=== PATIENT | male | born 1970 | race African-American/Black ===

== ENCOUNTER 2018-07-26 12:15 | Emergency (ER) | payer BC, OTHER ==
[2018-07-26] MEDS ORDERED: Ketorolac Tromethamine 30 MG/ML VIAL ONE (13:18)
[2018-07-26] MEDS ORDERED: Ibuprofen 800 MG TAB ONE (13:27)
== END 2018-07-26 13:39 | disposition home or self-care (01) ==
LOC: ERS 12:15
DX: S76.912A Strain of unspecified muscles, fascia and tendons at thigh level, left thigh, initial encounter (principal); X50.9XXA Other and unspecified overexertion or strenuous movements or postures, initial encounter
CPT/HCPCS: 96372; J1885

== ENCOUNTER 2019-03-01 10:49 | Emergency (ER) | payer OTHER ==
[2019-03-01 11:42] LABS: #Basophils 0.1 thou/uL (0.0-0.2); #Eosinphils 0.1 thou/uL (0.0-0.7); #Lymphocytes 1.7 thou/uL (1.20-3.40); #Monocytes 0.8 thou/uL (0.11-0.59); %Basophils 1.1 % (0.0-1.0); %Lymphocytes 25.3 % (21.0-51.0); %Monocytes 12.2 % (0.0-10.0); %Neutrophils 59.4 % (42.0-75.0); Hemoglobin 15.4 g/dL (14.0-18.0); Mean Corpuscular HGB CONC 33.4 g/dL (32.0-36.0); Mean Corpuscular Hemoglobin 29.3 pg (27.0-31.0); Mean Corpuscular Volume 87.7 fL (78.0-98.0); Mean Platelet Volume 8.2 fL (7.4-10.4); Platelet Count 220 thou/uL (130-400); RBC Distribution Width 12.1 % (11.5-14.5); Red Blood Cell (RBC) Count 5.25 mill/uL (4.70-6.10); White Blood Cell (WBC) Count 6.7 thou/uL (4.8-10.8)
[2019-03-01 12:16] LABS: ALT (SGPT) 16 U/L (8-55); AST (SGOT) 16 U/L (5-34); Albumin 4.2 g/dL (3.5-5.0); Alkaline Phosphatase 90 U/L (40-110); Anion Gap 12 mmol/L (10-20); BUN (Urea Nitrogen) 8 mg/dL (8.9-20.6); Bilirubin, Total 0.5 mg/dL (0.2-1.2); Calc. Creatinine Clearance 0 mL/min (70-130); Calcium 9.7 mg/dL (7.8-10.44); Carbon Dioxide 32 mmol/L (22-29); Chloride 100 mmol/L (98-107); Estimated GFR-MDRD Greater than 90; Globulin 3.6 g/dL (2.4-3.5); Glucose 140 mg/dL (70-105); Potassium 4.2 mmol/L (3.5-5.1); Protein, Total 7.8 g/dL (6.0-8.3); Sodium 140 mmol/L (136-145)
--- NOTE | 2019-03-01 13:33 | RAD ---
PORTABLE CHEST 1 VIEW: Date: 03/01/2019 Time: 1220 hours HISTORY: Hypertension. FINDINGS: Comparison made with exam of 04/02/07. The heart size is normal. The lungs are well expanded without lobar consolidation, pneumothoraces, or pleural effusions. IMPRESSION: No radiographic evidence of acute cardiopulmonary process. POS: [facility]
== END 2019-03-01 13:16 | disposition home or self-care (01) ==
LOC: ERS 10:49
DX: E11.40 Type 2 diabetes mellitus with diabetic neuropathy, unspecified (principal); R42 Dizziness and giddiness; I10 Essential (primary) hypertension; Z79.84 Long term (current) use of oral hypoglycemic drugs; Z79.899 Other long term (current) drug therapy
CPT/HCPCS: 36416; 71045; 80053; 84484; 85025; 93005

== ENCOUNTER 2020-05-30 14:10 | Observation (INO) | payer OTHER ==
[2020-05-30 17:30] VITALS: BMI 36.6
[2020-05-30] MEDS ORDERED: Dextrose 5% in Water 1,000 ML IV PRN (19:11)
[2020-05-30] MEDS ORDERED: Dextrose 50% Abboject 50 ML SYRINGE SLOW IVP PRN (19:11)
[2020-05-30] MEDS ORDERED: HumaLOG 300 UNITS/3 ML VIAL SC PRN (19:11)
[2020-05-30 20:13] LABS: Magnesium 1.8 mg/dL (1.6-2.6)
[2020-05-30] MEDS: HumaLOG 300 UNITS/3 ML VIAL SC PRN (21:47)
[2020-05-31] MEDS ORDERED: Magnesium 2 GM/50 ML 2 GM in Premix Bag 1 BAG IVPB SCH (02:45)
[2020-05-31 03:08] LABS: #Basophils 0.1 thou/uL (0.0-0.2); #Eosinphils 0.3 thou/uL (0.0-0.7); #Lymphocytes 2.1 thou/uL (1.20-3.40); #Monocytes 0.8 thou/uL (0.11-0.59); #Neutrophils 3.7 thou/uL (1.40-6.50); %Basophils 1.2 % (0.0-1.0); %Eosinophils 3.7 % (0.0-10.0); %Lymphocytes 30.5 % (21.0-51.0); %Monocytes 11.5 % (0.0-10.0); %Neutrophils 53.2 % (42.0-75.0); Hemoglobin 14.9 g/dL (14.0-18.0); Mean Corpuscular HGB CONC 35.6 g/dL (32.0-36.0); Mean Corpuscular Hemoglobin 31.1 pg (27.0-31.0); Mean Corpuscular Volume 87.4 fL (78.0-98.0); Mean Platelet Volume 8.1 fL (7.4-10.4); Platelet Count 198 thou/uL (130-400); RBC Distribution Width 12.3 % (11.5-14.5); Red Blood Cell (RBC) Count 4.79 mill/uL (4.70-6.10); White Blood Cell (WBC) Count 6.9 thou/uL (4.8-10.8)
[2020-05-31 03:27] LABS: Anion Gap 12 mmol/L (10-20); BUN (Urea Nitrogen) 16 mg/dL (8.9-20.6); Calc. Creatinine Clearance 170 mL/min (70-130); Calcium 8.7 mg/dL (7.8-10.44); Carbon Dioxide 24 mmol/L (22-29); Cardiac Risk 5.4 (Less than 4.5); Chloride 108 mmol/L (98-107); Cholesterol 172 mg/dl (< 200 Desired); Glucose 205 mg/dL (70-105); HDL Cholesterol 32 mg/dL (>60 Neg Risk); LDL Cholesterol, Calculated 77 mg/dL; Potassium 4.1 mmol/L (3.5-5.1); Sodium 140 mmol/L (136-145); Triglycerides 315 mg/dL (Less than 150)
[2020-05-31] MEDS: Aspirin Chewable 81 MG TAB PO SCH (09:44)
[2020-05-31] MEDS: Nitroglycerin 0.4 MG TAB (25 Tab Bottle) SL PRN ×2 (09:44→15:24)
[2020-05-31] MEDS ORDERED: Lisinopril 10 MG TAB PO SCH (11:15)
[2020-05-31] MEDS ORDERED: Communication Order-Pharmacy FS SCH (16:00)
[2020-05-31] MEDS ORDERED: Atorvastatin Calcium 40 MG TAB PO SCH (21:00)
[2020-05-31] MEDS: Metoprolol Tartrate 25 MG TAB PO SCH (22:21)
[2020-05-31] MEDS: HumaLOG 300 UNITS/3 ML VIAL SC PRN (22:58)
[2020-06-01 02:23] LABS: SARS-CoV-2 PCR by NAA Not Detected (NotDetected)
[2020-06-01 05:16] LABS: #Basophils 0.1 thou/uL (0.0-0.2); #Eosinphils 0.2 thou/uL (0.0-0.7); #Lymphocytes 1.9 thou/uL (1.20-3.40); #Monocytes 0.7 thou/uL (0.11-0.59); #Neutrophils 3.2 thou/uL (1.40-6.50); %Basophils 1.3 % (0.0-1.0); %Eosinophils 3.1 % (0.0-10.0); %Lymphocytes 30.9 % (21.0-51.0); %Monocytes 11.7 % (0.0-10.0); %Neutrophils 53.1 % (42.0-75.0); Hemoglobin 15.7 g/dL (14.0-18.0); Mean Corpuscular HGB CONC 33.3 g/dL (32.0-36.0); Mean Corpuscular Volume 87.2 fL (78.0-98.0); Platelet Count 201 thou/uL (130-400); RBC Distribution Width 12.2 % (11.5-14.5)
[2020-06-01] MEDS ORDERED: Sodium Chloride 0.9% 1,000 ML IV SCH ×2 (06:00→07:51)
[2020-06-01] MEDS: Aspirin Chewable 81 MG TAB PO SCH (06:03)
[2020-06-01] MEDS: Metoprolol Tartrate 25 MG TAB PO SCH (06:03)
[2020-06-01] MEDS ORDERED: Heparin 10,000 UNITS/ 10 ML VIAL ONE (06:42)
[2020-06-01] MEDS ORDERED: Lidocaine 1% (PF) 30 ML VIAL ONE (06:42)
[2020-06-01] MEDS ORDERED: Fentanyl 100 MCG/2 ML VIAL ONE (07:06)
[2020-06-01] MEDS ORDERED: Midazolam HCl 2 mg/2 ml Vial ONE (07:07)
[2020-06-01] MEDS ORDERED: Protamine Sulfate 50 MG/5 ML VIAL ONE (07:30)
[2020-06-01] MEDS ORDERED: Sodium Chloride 0.9% 200 ML IV PRN (07:50)
[2020-06-01] MEDS ORDERED: Acetaminophen/Codeine 30-300mg Tablet PO PRN ×2 (07:50)
[2020-06-01 08:24] VITALS: TEMP 97.5
[2020-06-01] MEDS: Cyclobenzaprine 10 MG TAB PO SCH ×2 (08:26→13:33)
[2020-06-01] MEDS ORDERED: Metoprolol Tartrate 25 MG TAB PO SCH (09:00)
[2020-06-01] MEDS ORDERED: Lisinopril 10 MG TAB PO SCH (09:00)
[2020-06-01] MEDS ORDERED: Naproxen 500 MG TAB PO SCH (09:00)
[2020-06-01 10:42] VITALS: BP 159/86
[2020-06-01] MEDS ORDERED: Iopamidol 370 76% 100 ML VIAL ONE (12:03)
[2020-06-01] MEDS ORDERED: Iopamidol 370 76% 50 ML VIAL FS ONE (12:03)
[2020-06-01] MEDS ORDERED: Atorvastatin Calcium 10 MG TAB PO SCH (21:00)
== END 2020-06-01 13:49 | disposition home or self-care (01) ==
LOC: 2SW 14:10
PROVIDERS: ADMIT Internal Medicine; ATTEND Internal Medicine
PROC: 4A023N7 Measurement of Cardiac Sampling and Pressure, Left Heart, Percutaneous Approach (ICD-10-PCS; principal; 2020-06-01)
PROC: B2111ZZ Fluoroscopy of Multiple Coronary Arteries using Low Osmolar Contrast (ICD-10-PCS; 2020-06-01)
DX: I20.8 Other forms of angina pectoris (principal); I10 Essential (primary) hypertension; E78.5 Hyperlipidemia, unspecified; E11.9 Type 2 diabetes mellitus without complications; E66.9 Obesity, unspecified; Z68.36 Body mass index [BMI] 36.0-36.9, adult; Z79.82 Long term (current) use of aspirin; Z79.84 Long term (current) use of oral hypoglycemic drugs; Z79.899 Other long term (current) drug therapy
CPT/HCPCS: 36415; 36416; 76942; 80048; 80061; 82607; 82746; 83036; 83690; 83735; 84484; 85025; 85347; 85379; 87635; 93005; 93010; 93306; 93458; 94760; 96374; 99152; 99153; G0378; J1644; J1815; J2001; J2250; J2720; J3010; J3475; Q9967; U0003; U0005